=== PATIENT | female | born 1970 | race Caucasian/White ===

== ENCOUNTER 2021-02-02 20:59 | Emergency (ER) | payer MEDICAID ==
[~2021-02-02] VITALS: Ht 167.6 cm; Wt 130.0 kg
--- NOTE | 2021-02-02 21:21 | PHYS DOC ---
Past History Past Surgical History: No Surgical History (ANNAMARIE BAKER APRN) General Adult EDM: Chief Complaint: HEADACHE HPI: HPI: Patient is a 50-year-old female being seen in the ER for a headache x10 days. Patient reports that the location of the headache is temporal. She describes it as a throbbing pain. She rates it 8 out of 10. She states it is worse when she bends over. She has been taking Tylenol and ibuprofen at home. She denies thunderclap headache, headache history, fevers, dizziness, vision changes, nausea, vomiting, photophobia, phonophobia. (ANNAMARIE BAKER APRN) Review of Systems: Review of Systems: 14 body systems of the review of systems have been reviewed. See HPI for pertinent positive and negative responses, otherwise all other systems are negative, nonpertinent or noncontributory (ANNAMARIE BAKER APRN) Physical Exam: PE: Constitutional: Well developed, well nourished, no acute distress, non-toxic appearance. [] HENT: Normocephalic, atraumatic, bilateral external ears normal, oropharynx moist, no oral exudates, nose normal. [] Eyes: PERRLA, EOMI, conjunctiva normal, no discharge. [] Neck: Normal range of motion, no stridor Cardiovascular:Heart rate regular rhythm, no murmur [] Lungs & Thorax: Bilateral breath sounds clear to auscultation [] Abdomen: Bowel sounds normal, soft, no tenderness, no masses, no pulsatile masses. [] Skin: Warm, dry, no erythema, no rash. [] Back: Normal range of motion Extremities: No tenderness, no cyanosis, no clubbing, ROM intact, no edema. [] Neurologic: Alert and oriented X 3, normal motor function, normal sensory function, no focal deficits noted. [] Psychologic: Affect normal, judgement normal, mood normal. [] (ANNAMARIE BAKER APRN) Current Patient Data: Vital Signs: Vital Signs Date Time Temp Pulse Resp B/P (MAP) Pulse Ox O2 Delivery O2 Flow Rate FiO2 02/02/21 21:12 98.0 99 22 165/88 98 Room Air (ANNAMARIE BAKER APRN) EKG: EKG: [] (ANNAMARIE BAKER APRN) Radiology/Procedures: Radiology/Procedures: PROCEDURE: CT HEAD WO CONTRAST EXAM: CT Head without IV contrast CLINICAL HISTORY: Reason: headache / Spl. Instructions: / History: COMPARISON: None. TECHNIQUE: Routine CT of the head without contrast. RS compliance statement - One or more of the following individualized dose reduction techniques were utilized for this study: 1. Automated exposure control 2. Adjustment of the mA and/or kV according to patient size 3. Use of iterative reconstruction technique FINDINGS: There is no evidence of hemorrhage, mass or extra-axial fluid collection. Payne-white differentiation is maintained with no evidence of edema. There is no mass effect or shift of the intracranial structures. The ventricles, basilar cisterns and cortical sulci are normal in size and configuration for the patients stated age. The cerebellum and brainstem are unremarkable. The calvarium demonstrates no evidence of fracture or focal lesion. There is normal aeration of the visualized paranasal sinuses and mastoid air cells. The visualized portions of the orbits are normal. IMPRESSION: No evidence for acute intracranial process. Electronically signed by: Carlo Marroquin MD (02/02/2021 9:46 PM) [facility] DICTATED AND SIGNED BY: CARLO MARROQUIN MD DATE: 02/02/212141 CC: EMERGENCY,DEPARTMENT; ANNAMARIE BAKER APRN; GEOFF NORMAN MD ~MTH0 0 [] (ANNAMARIE BAKER APRN) Heart Score: C/O Chest Pain: No Risk Factors: Risk Factors: DM, Current or recent (<one month) smoker, HTN, HLP, family history of CAD, obesity. Risk Scores: Score 0 - 3: 2.5% MACE over next 6 weeks - Discharge Home Score 4 - 6: 20.3% MACE over next 6 weeks - Admit for Clinical Observation Score 7 - 10: 72.7% MACE over next 6 weeks - Early Invasive Strategies (ANNAMARIE BAKER APRN) Course & Med Decision Making: Course & Med Decision Making Pertinent Labs and Imaging studies reviewed. (See chart for details) [] Patient is a 50-year-old female being seen in the ER for a headache. Negative meningeal signs. Negative thunderclap headache. Patient reports that she does not have a history of headaches and it is worse when she bends over. A CT scan was performed of the head and it showed no acute findings. Patient tr eated in the ER with a migraine cocktail and fluids. Following treatment in the ER patient reports improvement in her symptoms. Her blood pressure was 150/111. Patient states that she takes 0.2 mg of clonidine at night for her blood pressure but did not take it prior to arrival. Patient was given her dosage of clonidine in the ER. I discussed with patient all findings and diagnostic testing as well as the need to follow-up with PCP for further evaluation and treatment or return to the ER if any new or worsening symptoms. Strict return precautions were also discussed at length. Patient voiced understanding and agreement with the plan. Patient is hemodynamically stable at the time of disposition. (ANNAMARIE BAKER APRN) Course & Med Decision Making Did not see or evaluate patient. Did not discuss patient with NURSERYMAN ASSISTANT. Agree with NURSERYMAN ASSISTANT's work-up and disposition per note. (ELENI CARTER MD) [place] Disclaimer: Ame Disclaimer: This electronic medical record was generated, in whole or in part, using a voice recognition dictation system. (ANNAMARIE BAKER APRN) Departure Departure: Impression: Primary Impression: Headache Qualified Codes: R51.9 - Headache, unspecified Disposition: HOME / SELF CARE / HOMELESS Condition: GOOD Referrals: GEOFF NORMAN MD (PCP) Patient Instructions: General Headache Without Cause Additional Instructions: You were seen in the ER today for a headache. CT scan was performed your head and it was negative for any acute findings. You were treated with our migraine cocktail. You stated improvement in your symptoms following this. Please follow-up with your primary care provider on Wednesday regarding your ER visit. You can take Tylenol/ibuprofen for any pain at home. Your blood pressure was e levated in the ER, likely because you had not taken your nighttime dosage of clonidine yet. You were given your home dose in the ER. Do not take this medication when you get home after discharge from the ER. If you develop worsening of your headache, vision changes, intractable nausea or vomiting, fevers, worse headache you have ever experienced, confusion please return to the ER immediately. EMERGENCY DEPARTMENT GENERAL DISCHARGE INSTRUCTIONS Thank you for coming to [facility] (ED) today and trusting us with you care. We trust that you had a positivie experience in our Emergency Department. If you wish to speak to the department management, you may call the director at [phone]. YOUR FOLLOW UP INSTRUCTIONS ARE FOLLOWS: 1. Do you have a private Doctor? If you do not have a private doctor, please ask for a resource list of physicians or clinics that may be able to assist you with follow up care. 2. The Emergency Physician has interpreted your x-rays. The X-Ray specialist will also review them. If there is a change in the findings, you will be notified in 48 hours when at all possible. 3. A lab test or culture has been done, your results will be reviewed and you will be notified if you need a change in treatment. ADDITIONAL INSTRUCTIONS AND INFORMATION: 1. Your care today has been supervised by a physician who is specially trained in emergency care. Many problems require more than one evaluation for a complete diagnosis and treatment. We recommend that you schedule your follow up appointment as recommended to ensure complete treatment of you illness or injury. If you are unable to obtain follow up care and continue to have a problem, or if your condition worsens, we recommend that you return to the ED. 2. We are not able to safely determine your condition over the phone nor are we able to give sound medical advice over the phone. For these safety reasons, if you call for medical advice we will ask you to come to the ED for further evaluation. 3. If you have any questions regarding these discharge instructions please call the ED at [phone]. SAFETY INFORMATION: In the interest of safety, wellness, and injury prevention; we encourage you to wear your sealbelt, if you smoke; quite smoking, and we encourage family to use a protective helmet for bicycling and other sporting events that present an increased risk for head injury. IF YOUR SYMPTOMS WORSEN OR NEW SYMPTOMS DEVELOP, OR YOU HAVE CONCERNS ABOUT YOUR CONDITION; OR IF YOUR CONDITION WORSENS WHILE YOU ARE WAITING FOR YOUR FOLLOW UP APPOINTMENT; EITHER CONTACT YOUR PRIMARY CARE DOCTOR, THE PHYSICIAN WHOSE NAME AND NUMBER YOU WERE GIVEN, OR RETURN TO THE ED IMMEDIATELY. ANNAMARIE BAKER APRN Feb 02, 2021 21:21 ELENI CARTER MD Feb 02, 2021 22:36
[2021-02-02] MEDS ORDERED: PROCHLORPERAZINE 10 MG/2 ML VIAL. IV ONE (21:30)
[2021-02-02] MEDS ORDERED: KETOROLAC 30 MG/ML VIAL. IVP ONE (21:30)
[2021-02-02] MEDS ORDERED: IV NORMAL SALINE 1,000ML 1,000 ML IV ONE (21:30)
[2021-02-02] MEDS ORDERED: diphenhydrAMINE 50 MG/ML VIAL IVP ONE (21:30)
[2021-02-02] MEDS ORDERED: diphenhydrAMINE 50 MG/ML VIAL ONE (21:36)
[2021-02-02] MEDS ORDERED: KETOROLAC 30 MG/ML VIAL. ONE (21:36)
[2021-02-02] MEDS ORDERED: PROCHLORPERAZINE 10 MG/2 ML VIAL. ONE (21:36)
--- NOTE | 2021-02-02 21:49 | RAD ---
EXAM: CT Head without IV contrast CLINICAL HISTORY: Reason: headache / Spl. Instructions: / History: COMPARISON: None. TECHNIQUE: Routine CT of the head without contrast. PQRS compliance statement - One or more of the following individualized dose reduction techniques wer e utilized for this study: 1. Automated exposure control 2. Adjustment of the mA and/or kV according to patient size 3. Use of iterative reconstruction technique FINDINGS: There is no evidence of hemorrhage, mass or extra-axial fluid collection. Payne-white differentiation is maintained with no evidence of edema. There is no mass effect or shift of the intracranial structures. The ventricles, basilar cisterns and cortical sulci are normal in size and configuration for the yue ents stated age. The cerebellum and brainstem are unremarkable. The calvarium demonstrates no evidence of fracture or focal lesion. There is normal aeration of the visualized paranasal sinuses and mastoid air cells. The visualized portions of the orbits are normal. IMPRESSION: No evidence for acute intracranial process. Electronically signed by: Carlo Henriquez MD (02/02/2021 9:46 PM) [facility]
[2021-02-02] MEDS ORDERED: cloNIDine HCL 0.1 MG TABLET PO ONE (22:15)
[2021-02-02] MEDS ORDERED: predniSONE 20 MG TABLET ONE (22:29)
[2021-02-02] MEDS ORDERED: DEXAMETHASONE 4 MG TABLET PO ONE (22:30)
[2021-02-02 22:37] VITALS: BP 145/72
== END 2021-02-02 22:38 | disposition home or self-care (01) ==
LOC: ER 20:59
DX: R51.9 Headache, unspecified (principal)
CPT/HCPCS: 70450; 96361; 96374; 96375; 99284; J0780; J1200; J1885; J3010; J7030

== ENCOUNTER 2021-09-20 16:13 | Emergency (ER) | payer MEDICAID ==
[~2021-09-20] VITALS: Ht 167.6 cm; Wt 135.0 kg
[2021-09-20 16:32] VITALS: BP 144/93
[2021-09-20] MEDS ORDERED: LIDOCAINE/EPI/TETRACAINE TOPICAL GEL 3 ML. TP ONE ×2 (16:37→16:45)
[2021-09-20 17:08] LABS: BASO # 0.1 x10^3/uL (0.0-0.2); BASO % 1 % (0-3); EOS # 0.4 x10^3/uL (0.0-0.7); EOS % 4 % (0-3); HEMATOCRIT 40.1 % (36.0-47.0); HEMOGLOBIN 13.1 g/dL (12.0-15.5); LYMPH # 2.4 x10^3/uL (1.0-4.8); LYMPH % 25 % (24-48); MEAN CORPUSCULAR HEMOGLOBIN 28 pg (25-35); MEAN CORPUSCULAR HGB CONC 33 g/dL (31-37); MEAN CORPUSCULAR VOLUME 87 fL (79-100); MONO # 0.7 x10^3/uL (0.0-1.1); MONO % 7 % (0-9); NEUT % 63 % (31-73); PLATELET COUNT 178 x10^3/uL (140-400); RED BLOOD COUNT 4.64 x10^6/uL (3.50-5.40); WHITE BLOOD COUNT 9.6 x10^3/uL (4.0-11.0)
[2021-09-20 17:16] LABS: CALCIUM 9.1 mg/dL (8.5-10.1); CREATININE 1.7 mg/dL (0.6-1.0); GFR 31.6; POTASSIUM 4.3 mmol/L (3.5-5.1)
[2021-09-20 17:22] LABS: ALBUMIN 2.6 g/dL (3.4-5.0); ALBUMIN/GLOBULIN RATIO 0.6 (1.0-1.7); TOTAL BILIRUBIN 0.2 mg/dL (0.2-1.0); TOTAL PROTEIN 6.8 g/dL (6.4-8.2)
[2021-09-20] MEDS ORDERED: SULF1TAB24 PO (17:40)
--- NOTE | 2021-09-20 17:40 | PHYS DOC ---
Past History Past Surgical History: Appendectomy, Cholecystectomy Alcohol Use: Rarely General Adult EDM: Chief Complaint: CELLULITIS HPI: HPI: Patient is a 51-year-old female coming in for redness to her right great toe. Patient states she called her primary care provider To come to emergency department because she has poorly controlled diabetes. Patient states she re cently ran out of her insulin and her blood sugars are running in the 300s, has it now and has been having better control. Patient states that the symptoms started about 2 days ago and she had felt itching and she had rubbed her toe, denies any scratching or breaks in skin. Denies any drainage or systemic complaints. Review of Systems: Review of Systems: All other systems within normal limits except for as noted in the HPI Current Medications: Current Meds: Current Medications Medications (Trade) Dose Ordered Sig/Paula Start Time Stop Time Status Last Admin Dose Admin Lidocaine/ Epinephrine (Let ([id number]) Gel) 3 ml 1X ONCE 09/20/21 16:45 09/20/21 16:46 DC 09/20/21 16:42 3 ML Allergies: Allergies: Allergies Coded Allergies Type Severity Reaction Last Updated Verified Penicillins Allergy Unknown 09/20/21 Yes codeine Allergy Unknown 09/20/21 Yes Physical Exam: PE: Constitutional: Well developed, well nourished, no acute distress, non-toxic appearance. [] HENT: Normocephalic, atraumatic, bilateral external ears normal, nose normal. [] Eyes: PERRLA, conjunctiva normal, no discharge. [] Neck: No rigidity, supple, no stridor. [] Cardiovascular: Regular rate and rhythm, brisk cap refill [] Lungs & Thorax: Non labored symmetric respirations, no tachypnea or respiratory distress [] Abdomen: Soft, nondistended. Skin: Warm, dry, no erythema, no rash. Paronychia to base of right great toe [] Back: Unremarkable Extremities: No deformities, range of motion grossly intact, no lower extremity edema [] Neurologic: Alert and oriented X 3, no focal deficits noted. [] Psychologic: Affect normal, judgement normal, mood normal. [] Current Patient Data: Labs: Laboratory Tests Test 09/20/21 16:46 White Blood Count 9.6 x10^3/uL (4.0-11.0) Red Blood Count 4.64 x10^6/uL (3.50-5.40) Hemoglobin 13.1 g/dL (12.0-15.5) Hematocrit 40.1 % (36.0-47.0) Mean Corpuscular Volume 87 fL (79-100) Mean Corpuscular Hemoglobin 28 pg (25-35) Mean Corpuscular Hemoglobin Concent 33 g/dL (31-37) Red Cell Distribution Width 14.0 % (11.5-14.5) Platelet Count 178 x10^3/uL (140-400) Neutrophils (%) (Auto) 63 % (31-73) Lymphocytes (%) (Auto) 25 % (24-48) Monocytes (%) (Auto) 7 % (0-9) Eosinophils (%) (Auto) 4 % (0-3) H Basophils (%) (Auto) 1 % (0-3) Neutrophils # (Auto) 6.0 x10^3uL (1.8-7.7) Lymphocytes # (Auto) 2.4 x10^3/uL (1.0-4.8) Monocytes # (Auto) 0.7 x10^3/uL (0.0-1.1) Eosinophils # (Auto) 0.4 x10^3/uL (0.0-0.7) Basophils # (Auto) 0.1 x10^3/uL (0.0-0.2) Sodium Level 137 mmol/L (136-145) Potassium Level 4.3 mmol/L (3.5-5.1) Chloride Level 102 mmol/L (98-107) Carbon Dioxide Level 25 mmol/L (21-32) Anion Gap 10 (6-14) Blood Urea Nitrogen 29 mg/dL (7-20) H Creatinine 1.7 mg/dL (0.6-1.0) H Estimated GFR (Cockcroft-Gault) 31.6 BUN/Creatinine Ratio 17 (6-20) Glucose Level 377 mg/dL (70-99) H Calcium Level 9.1 mg/dL (8.5-10.1) Total Bilirubin 0.2 mg/dL (0.2-1.0) Aspartate Amino Transferase (AST) 16 U/L (15-37) Alanine Aminotransferase (ALT) 25 U/L (14-59) Alkaline Phosphatase 133 U/L (46-116) H Total Protein 6.8 g/dL (6.4-8.2) Albumin 2.6 g/dL (3.4-5.0) L Albumin/Globulin Ratio 0.6 (1.0-1.7) L Vital Signs: Vital Signs Date Time Temp Pulse Resp B/P (MAP) Pulse Ox O2 Delivery O2 Flow Rate FiO2 09/20/21 16:32 97.9 103 18 144/93 (110) 96 Room Air EKG: EKG: [] Radiology/Procedures: Radiology/Procedures: My incision and drainage procedure note. Area drained with let, a 11 blade scalpel was used to raise the edge of the lunula away from the nail plate. A couple drops of purulent drainage were expressed. No complications. Patient tolerated procedure well. [] Heart Score: C/O Chest Pain: No Risk Factors: Risk Factors: DM, Current or recent (<one month) smoker, HTN, HLP, family history of CAD, obesity. Risk Scores: Score 0 - 3: 2.5% MACE over next 6 weeks - Discharge Home Score 4 - 6: 20.3% MACE over next 6 weeks - Admit for Clinical Observation Score 7 - 10: 72.7% MACE over next 6 weeks - Early Invasive Strategies Course & Med Decision Making: Course & Med Decision Making Pertinent Labs and Imaging studies reviewed. (See chart for details) [] Dragon Disclaimer: Dragon Disclaimer: This electronic medical record was generated, in whole or in part, using a voice recognition dictation system. Departure Departure: Impression: Primary Impression: Paronychia of great toe, right Disposition: HOME / SELF CARE / HOMELESS Condition: STABLE Referrals: GEOFF NORMAN MD (PCP) Patient Instructions: Paronychia Scripts Sulfamethoxazole/Trimethoprim (BACTRIM DS TABLET) 1 Each Tablet 1 TAB PO BID for antibiotic for 7 Days, #14 TAB 0 Refills Prov: SILVER POON MD 09/20/21 SILVER POON MD Sep 20, 2021 17:40
== END 2021-09-20 17:59 | disposition home or self-care (01) ==
LOC: ER 16:13
DX: L03.031 Cellulitis of right toe (principal); Z88.0 Allergy status to penicillin; Z88.5 Allergy status to narcotic agent
CPT/HCPCS: 10060; 36415; 80053; 85025; 99283